=== PATIENT | female | born 1970 | race Caucasian/White ===

== ENCOUNTER → 2016-10-02 | Day surgery (SDC) | payer OTHER ==
[~2016-10-02] MED LIST: AMBIEN10 MG PO; ATIVAN PO; DISCONTINUED MED; LEXAPRO PO; PROZAC10 MG PO; SEASONALE1 BLIST PA PO; SEROQUEL400 MG PO; STAHIST AD TAB1 EACH PO; TOPROL XL PO; TRILEPTAL PO; WELLBUTRIN SR150 MG PO; WELLBUTRIN XL150 M2 PO
--- NOTE | ~2016-10-02 | ECT ---
Unit #: [id number] #: [id number] Patient: SAMEER ESTRADA [id number] [place] [address] [id number] O MR#: [id number] NAME: SAMEER ESTRADA ROOM: Age: 46 Sex: F Admission Date: 10/02/2016 : 1970 Discharge Date: Attending Physician: Regulo Pavon M.D. Primary Care Physician: Jeni Strauss M.D. ECT NOTE DATE OF TREATMENT 10/02/2016 TREATMENT NUMBER 12 maintenance TREATMENT MODALITY Unilateral ECT. ANESTHESIA Glycopyrrolate: 0.2 mg Brevital: 130 mg Succinylcholine: 100 mg TREATMENT PARAMETERS Charge: 444 millicoulombs Pulse Width: 1.0 milliseconds Frequency: 50 Hertz Duration: 5.5 seconds Current: 800 milliamps TREATMENT DELIVERED Energy: 96.3 joules Impedance: 262 ohms Charge: 444 millicoulombs SEIZURE MEASURES OMS: 11 seconds EE seconds COMPLICATIONS None. SUMMARY The patient had a good seizure both with OMS and EEG measures. Depression has not shown any real signs of coming back with her maintenance ECT scheduled every 2 weeks. We are going to try to extend her after the three weeks this time and see how she does. No medication changes at this point. I will continue to follow her in outpatient clinic for medication management. DIFFERENTIAL DIAGNOSIS [place] I: F33.2. [place] II: Deferred. Unit #: [id number] #: [id number] Patient: SAMEER ESTRADA [place] III: Nothing acute. Dictated by... Adrian Christine/jose TD: 10/04/2016 02:31 JOB #: [id number] ECT NOTE X Regulo Pavon MD <ELECTRONICALLY SIGNED> 04/03/17 1702 X ECT
== END | disposition home or self-care (01) ==
LOC: CSUR 06:52
DX: F33.2 Major depressive disorder, recurrent severe without psychotic features (principal); I10 Essential (primary) hypertension; Z79.899 Other long term (current) drug therapy
CPT/HCPCS: 90870; J1885

== ENCOUNTER → 2016-10-23 | Day surgery (SDC) | payer OTHER ==
--- NOTE | ~2016-10-23 | ECT ---
Unit #: [id number] #: [id number] Patient: SAMEER ESTRADA [id number] [place] [address] [id number] O MR#: [id number] NAME: SAMEER ESTARDA ROOM: Age: 46 Sex: F Admission Date: 10/23/2016 : 1970 Discharge Date: Attending Physician: Regulo Pavon M.D. Primary Care Physician: Jeni Strauss M.D. ECT NOTE DATE OF TREATMENT 10/23/2016 TREATMENT NUMBER Thirteen (maintenance) TREATMENT MODALITY Unilateral ECT ANESTHESIA Glycopyrrolate: 0.2 mg Brevital: 130 mg Succinylcholine: 100 mg TREATMENT PARAMETERS Charge: 288 millicoulombs Pulse Width: 1.0 milliseconds Frequency: 40 Hertz Duration: 4.5 seconds Current: 800 milliamps TREATMENT DELIVERED Energy: 65.1 joules Impedance: 269 ohms Charge: 288 millicoulombs SEIZURE MEASURES OMS: 12 seconds EE seconds COMPLICATIONS None. SUMMARY The patient's seizure is measured both by OMS and EEG were a little bit lower than her last ECT, but she seems to be doing pretty well with her maintenance ECTs. We have increased her Lexapro and her mood has done well over the last three weeks. We are going to try to extend her ECTs out to a month. DIFFERENTIAL DIAGNOSES [place] I: F33.2. AXIS II: Deferred. Unit #: [id number] #: [id number] Patient: SAMEER ESTRADA AXIS III: Nothing acute. AXIS IV: AXIS V: Dictated by... Regulo Pavon M.D. DEION/kady TD: 10/24/2016 09:47 JOB #: [id number] ECT NOTE X Regulo Pavon MD <ELECTRONICALLY SIGNED> 04/03/17 1702 X ECT
== END | disposition home or self-care (01) ==
LOC: CSUR 06:49
DX: F33.2 Major depressive disorder, recurrent severe without psychotic features (principal); I10 Essential (primary) hypertension; Z79.899 Other long term (current) drug therapy
CPT/HCPCS: 84703; 90870; J0330; J1885

== ENCOUNTER → 2016-11-20 | Day surgery (SDC) | payer OTHER ==
--- NOTE | ~2016-11-20 | ECT ---
Unit #: [id number] #: [id number] Patient: SAMEER ESTRADA [id number] [place] [address] [id number] O MR#: [id number] NAME: SAMEER ESTRADA ROOM: Age: 46 Sex: F Admission Date: 11/20/2016 : 1970 Discharge Date: Attending Physician: Regulo Pavon M.D. Primary Care Physician: Jeni Strauss M.D. ECT NOTE DATE OF TREATMENT 11/20/2016 TREATMENT NUMBER 14 TREATMENT MODALITY Unilateral ECT. ANESTHESIA Glycopyrrolate: 0.2 mg. Brevital: 130 mg. Succinylcholine: 100 mg. TREATMENT PARAMETERS Charge: 288 millicoulombs Pulse Width: 1.0 milliseconds Frequency: 40 Hertz Duration: 4.5 seconds Current: 800 milliamps TREATMENT DELIVERED Energy: 35.9 joules Impedance: 300 ohms Charge: 288 millicoulombs SEIZURE MEASURES OMS: 13 seconds EE seconds COMPLICATIONS None. SUMMARY The patient had a good seizure with OMS and EEG measures. Her depression seems to have become a little bit on the side of kizzy in the last few days. She has been having difficulty sleeping. Energy has been a little bit hyper and she has been having some racing thoughts and some rapid speech. I will give her another ECT on Sunday unless it feels like this maintenance ECT has been adequate. DIFFERENTIAL DIAGNOSES AX[place] I: F33.2 with rule out for F31.81. Unit #: [id number] #: [id number] Patient: SAEMER ESTRADA AXIS II: Deferred. AXIS III: Nothing acute. Dictated by... Regulo Pavon M.D. SMT/july TD: 11/21/2016 10:02 JOB #: [id number] ECT NOTE Page 1 of 1 X Regulo Pavon MD <ELECTRONICALLY SIGNED> 03/12/17 1207 X ECT
== END | disposition home or self-care (01) ==
LOC: CSUR 07:32
DX: F33.2 Major depressive disorder, recurrent severe without psychotic features (principal); I10 Essential (primary) hypertension; Z79.899 Other long term (current) drug therapy
CPT/HCPCS: 84703; 90870; J0330; J1885

== ENCOUNTER → 2016-11-22 | Day surgery (SDC) | payer OTHER ==
--- NOTE | ~2016-11-22 | ECT ---
Unit #: [id number] #: [id number] Patient: SAMEER ESTRADA [id number] [place] [address] [id number] O MR#: [id number] NAME: SAMEER ESTRADA ROOM: Age: 46 Sex: F Admission Date: 11/22/2016 : 1970 Discharge Date: Attending Physician: Regulo Pavon M.D. Primary Care Physician: Jeni Strauss M.D. ECT NOTE DATE OF TREATMENT 11/22/2016 TREATMENT NUMBER 15, maintenance TREATMENT MODALITIES Unilateral ECT ANESTHESIA Glycopyrrolate: 0.2 mg Brevital: 130 mg Succinylcholine: 100 mg TREATMENT PARAMETERS Charge: 288 millicoulombs Pulse Width: 1.0 milliseconds Frequency: 40 Hertz Duration: 4.5 seconds Current: 800 milliamps TREATMENT DELIVERED Energy: 77.4 joules Impedance: 312 ohms Charge: 288 millicoulombs SEIZURE MEASURES OMS: 11 seconds EE seconds COMPLICATIONS None. SUMMARY The patient had a good seizure with OMS and EEG measures. Depression did get a little bit better between Sunday and today. She feels like her mind is not "racing" as much today. I will put her on the schedule for Sunday but if she feels like that today's ECT has gotten her back into her euthymic state, we will take her off the schedule for Sunday and then put her back on her 3-week maintenance schedule. DISCHARGE DIAGNOSES AXIS I: F33.2 Unit #: [id number] #: [id number] Patient: SAMEER ESTRADA AXIS II: Deferred. AXIS III: Nothing acute. Dictated by... Adrian Christine/luisa TD: 11/23/2016 22:55 JOB #: [id number] ECT NOTE Page 1 of 1 X Regulo Pavon MD <ELECTRONICALLY SIGNED> 03/12/17 1207 X ECT
== END | disposition home or self-care (01) ==
LOC: CSUR 06:58
DX: F33.2 Major depressive disorder, recurrent severe without psychotic features (principal); I10 Essential (primary) hypertension; Z79.899 Other long term (current) drug therapy
CPT/HCPCS: 90870; J0330; J1885

== ENCOUNTER → 2016-11-27 | Day surgery (SDC) | payer OTHER ==
--- NOTE | ~2016-11-27 | ECT ---
Unit #: [id number] #: [id number] Patient: SAMEER ESTRADA [id number] [place] [address] [id number] O MR#: [id number] NAME: SAMEER ESTRADA ROOM: Age: 46 Sex: F Admission Date: 11/27/2016 : 1970 Discharge Date: Attending Physician: Regulo Pavon M.D. Primary Care Physician: Jeni Strauss M.D. ECT NOTE DATE OF TREATMENT 11/27/2016 TREATMENT NUMBER Sixteen (maintenance) TREATMENT MODALITY Unilateral ECT ANESTHESIA Glycopyrrolate: 0.2 mg Brevital: 130 mg Succinylcholine: 100 mg TREATMENT PARAMETERS Charge: 288 millicoulombs Pulse Width: 1.0 milliseconds Frequency: 40 Hertz Duration: 4.5 seconds Current: 800 milliamps TREATMENT DELIVERED Energy: 72.9 joules Impedance: 306 ohms Charge: 288 millicoulombs SEIZURE MEASURES OMS: 12 seconds EE seconds COMPLICATIONS None. SUMMARY The patient had a good seizure with OMS and EEG measures. A little bit on the short side so will increase her energy on Sunday. She does continue to have some depressive symptoms and even though her medications are having some positive benefit, I will get her back here Sunday to continue her maintenance ECTs and we will keep her on a day by day schedule until we get her mood back into the baseline status. DIFFERENTIAL DIAGNOSES [place] I: F33.2. Unit #: [id number] #: [id number] Patient: SAMEER ESTRADA AXIS II: Deferred. AXIS III: Nothing acute. AXIS IV: AXIS V: Dictated by... Regulo Pavon M.D. DEION/kady TD: 11/29/2016 08:23 JOB #: [id number] ECT NOTE Page 1 of 1 X Regulo Pavon MD <ELECTRONICALLY SIGNED> 03/12/17 1207 X ECT
== END | disposition home or self-care (01) ==
LOC: CSUR 07:16
DX: F33.2 Major depressive disorder, recurrent severe without psychotic features (principal); I10 Essential (primary) hypertension; Z79.899 Other long term (current) drug therapy; Z98.890 Other specified postprocedural states
CPT/HCPCS: 90870; J1885

== ENCOUNTER → 2016-11-29 | Day surgery (SDC) | payer OTHER ==
--- NOTE | ~2016-11-29 | ECT ---
Unit #: [id number] #: [id number] Patient: SAMEER ESTRADA [id number] [place] [address] [id number] O MR#: [id number] NAME: SAMEER ESTRADA ROOM: Age: 46 Sex: F Admission Date: 11/29/2016 : 1970 Discharge Date: Attending Physician: Regulo Pavon M.D. Referring Physician: Regulo Pavon M.D. Primary Care Physician: Jeni Strauss M.D. ECT NOTE DATE OF TREATMENT 11/29/2016 TREATMENT NUMBER 17, maintenance TREATMENT MODALITY Unilateral ECT. ANESTHESIA Glycopyrrolate: 0.2 mg. Brevital: 130 mg. Succinylcholine: 100 mg. TREATMENT PARAMETERS Charge: 400 millicoulombs Pulse Width: 1.0 milliseconds Frequency: 50 Hertz Duration: 5 seconds Current: 800 milliamps TREATMENT DELIVERED Energy: 94.8 joules Impedance: 284 ohms Charge: 400 millicoulombs SEIZURE MEASURES OMS: 7 seconds EE seconds COMPLICATIONS None. SUMMARY The patient had a good seizure with OMS and EEG measures. Depression is still pretty intense with psychomotor retardation, poor focus and concentration, loss of interest in activities, poor sleep, feelings of guilt, subjective feeling of depression, and rather flattened affect. I will continue her ECT treatments on Sunday. We will increase the energy of the machine a little bit to see if we can get a better response. DIFFERENTIAL DIAGNOSES AXIS I: F33.2 Unit #: [id number] #: [id number] Patient: SAMEER ESTRADA AXIS II: Deferred. AXIS III: Nothing acute. Dictated by... Regulo Pavon M.D. DEION/mera TD: 11/30/2016 07:16 JOB #: [id number] ECT NOTE Page 1 of 1 X Regulo Pavon MD <ELECTRONICALLY SIGNED> 03/12/17 1207 X ECT
== END | disposition home or self-care (01) ==
LOC: CSUR 07:47
DX: F33.2 Major depressive disorder, recurrent severe without psychotic features (principal)
CPT/HCPCS: 84703; 90870; J0330; J1885

== ENCOUNTER → 2016-12-04 | Day surgery (SDC) | payer OTHER | END | disposition home or self-care (01) | LOC: CSUR 07:45 | DX: F33.2 Major depressive disorder, recurrent severe without psychotic features (principal); I10 Essential (primary) hypertension; Z79.899 Other long term (current) drug therapy; Z98.890 Other specified postprocedural states | CPT/HCPCS: 90870; J0330; J1885 ==

== ENCOUNTER → 2016-12-06 | Day surgery (SDC) | payer OTHER ==
--- NOTE | ~2016-12-06 | ECT ---
Unit #: [id number] #: [id number] Patient: SAMEER ESTRADA [id number] [place] [address] [id number] O MR#: [id number] NAME: SAMEER ESTRADA ROOM: Age: 46 Sex: F Admission Date: 12/06/2016 : 1970 Discharge Date: Attending Physician: Regulo Pavon M.D. Primary Care Physician: Jeni Strauss M.D. ECT NOTE DATE OF TREATMENT 12/06/2016. TREATMENT NUMBER 19, maintenance. MODE Unilateral ECT ANESTHESIA Glycopyrrolate: 0.2 mg Brevital: 130 mg Succinylcholine: 100 mg. TREATMENT PARAMETERS Charge: 400 millicoulombs Pulse width: 1.0 msec Frequency: 50 Hz Duration: 5 seconds Current: 800 milliamps. TREATMENT DELIVERED Energy: 98.7 joules Impedance: 297 ohms Charge: 400 millicoulombs SEIZURE MEASURES OMS: 19 seconds EE seconds COMPLICATIONS None SUMMARY The patient is doing a bit better with her depressive symptoms, but she does continue to have some psychomotor retardation, poor focus and concentration, loss of interest in activities, poor sleep, decreased energy, some loss of appetite. No suicidal or homicidal ideation is noted today. I will continue her ECT treatments on Sunday with the hopes that we might be able to wrap up her ECT schedule at that point and get her back on a maintenance routine scheduled. DIFFERENTIAL DIAGNOSIS AXIS I: F33.2. Unit #: [id number] #: [id number] Patient: SAMEER ESTRADA AXIS II: Deferred. AXIS III: Nothing acute. Dictated by... Adrian Christine/jaden TD: 12/06/2016 10:55 JOB #: [id number] ECT NOTE Page 1 of 1 X Regulo Pavon MD <ELECTRONICALLY SIGNED> 03/12/17 1207 X ECT
--- NOTE | ~2016-12-06 | ECT ---
Unit #: [id number] #: [id number] Patient: SAMEER ESTRADA [id number] [place] [address] [id number] P MR#: [id number] NAME: SAMEER ESTRADA ROOM: Age: 46 Sex: F Admission Date: 12/06/2016 : 1970 Discharge Date: Attending Physician: Regulo Pavon M.D. Primary Care Physician: Jeni Strauss M.D. ECT NOTE DATE OF TREATMENT 12/04/2016 TREATMENT NUMBER 18 TREATMENT MODALITY Unilateral ECT. ANESTHESIA Glycopyrrolate: 0.2 mg. Brevital: 130 mg. Succinylcholine: 100 mg. TREATMENT PARAMETERS Charge: 400 millicoulombs Pulse Width: 1.0 milliseconds Frequency: 50 Hertz Duration: 5 seconds Current: 800 milliamps TREATMENT DELIVERED Energy: 96.3 joules Impedance: 287 ohms Charge: 400 millicoulombs SEIZURE MEASURES OMS: 12 seconds EE seconds COMPLICATIONS None. SUMMARY The patient had a good seizure with her OMS and EEG measures. Depression still seems to be somewhat prevalent. Psychomotor retardation, poor focus and concentration, loss of interest in activities. She does not have any suicidal or homicidal ideation noted, and no kizzy. I will continue her ECT treatments on Sunday. DIFFERENTIAL DIAGNOSES AXIS I: F33.2 AXIS II: Deferred. Unit #: [id number] #: [id number] Patient: SAMEER ESTRADA AXIS III: Nothing acute. Dictated by... Regulo Pavon M.D. DEION/mera TD: 12/05/2016 07:16 JOB #: [id number] ECT NOTE Page 1 of 1 X Regulo Pavon MD <ELECTRONICALLY SIGNED> 03/12/17 1207 X ECT
== END | disposition home or self-care (01) ==
LOC: CSUR 08:06
DX: F33.2 Major depressive disorder, recurrent severe without psychotic features (principal); I10 Essential (primary) hypertension; Z79.899 Other long term (current) drug therapy; Z98.890 Other specified postprocedural states; Z87.09 Personal history of other diseases of the respiratory system
CPT/HCPCS: 84703; 90870; J1885

== ENCOUNTER → 2016-12-08 | Day surgery (SDC) | payer OTHER ==
--- NOTE | ~2016-12-08 | ECT ---
Unit #: [id number] #: [id number] Patient: SAMEER ESTRADA [id number] [place] [address] [id number] O MR#: [id number] NAME: SAMEER ESTRADA ROOM: Age: 46 Sex: F Admission Date: 12/08/2016 : 1970 Discharge Date: Attending Physician: Regulo Pavon M.D. Primary Care Physician: Jeni Strauss M.D. ECT NOTE DATE OF TREATMENT 12/08/2016 TREATMENT NUMBER 20, maintenance TREATMENT MODALITY Unilateral ECT. ANESTHESIA Glycopyrrolate: 0.2 mg. Brevital: 130 mg. Succinylcholine: 100 mg. TREATMENT PARAMETERS Charge: 400 millicoulombs Pulse Width: 1.0 milliseconds Frequency: 50 Hertz Duration: 5 seconds Current: 800 milliamps TREATMENT DELIVERED Energy: 95.2 joules Impedance: 284 ohms Charge: 400 millicoulombs SEIZURE MEASURES OMS: 11 seconds EE seconds COMPLICATIONS None. SUMMARY The patient had a good seizure with OMS and EEG measures. Depression has improved. She does need to have reached her baseline. We will stop her ECT protocol at this point and put her back on her maintenance schedule once every 2 weeks. DIFFERENTIAL DIAGNOSES AXIS I: F33.2 AXIS II: Deferred. Unit #: [id number] #: [id number] Patient: SAMEER ESTRADA AXIS III: Nothing acute. Dictated by... Adrian Christine/mera TD: 12/08/2016 10:51 JOB #: [id number] ECT NOTE Page 1 of 1 X Regulo Pavon MD <ELECTRONICALLY SIGNED> 03/12/17 1207 X ECT
== END | disposition home or self-care (01) ==
LOC: CSUR 07:26
DX: F33.2 Major depressive disorder, recurrent severe without psychotic features (principal); I10 Essential (primary) hypertension; Z79.899 Other long term (current) drug therapy; Z90.89 Acquired absence of other organs; Z98.890 Other specified postprocedural states
CPT/HCPCS: 90870; J0330; J1885

== ENCOUNTER → 2016-12-18 | Day surgery (SDC) | payer OTHER ==
--- NOTE | ~2016-12-18 | ECT ---
Unit #: [id number] #: [id number] Patient: SAMEER ESTRADA [id number] [place] [address] [id number] O MR#: [id number] NAME: SAMEER ESTRADA ROOM: Age: 46 Sex: F Admission Date: 12/18/2016 : 1970 Discharge Date: Attending Physician: Regulo Pavon M.D. Primary Care Physician: Jeni Strauss M.D. ECT NOTE DATE OF TREATMENT 12/18/2016 TREATMENT NUMBER Twenty-one (maintenance) TREATMENT MODALITY Unilateral ECT ANESTHESIA Glycopyrrolate: 0.2 mg Brevital: 130 mg Succinylcholine: 100 mg TREATMENT PARAMETERS Charge: 400 millicoulombs Pulse Width: 1.0 milliseconds Frequency: 50 Hertz Duration: 5 seconds Current: 800 milliamps TREATMENT DELIVERED Energy: 89.7 joules Impedance: 268 ohms Charge: 400 millicoulombs SEIZURE MEASURES OMS: 8 seconds EE seconds COMPLICATIONS None SUMMARY The patient had a good seizure with her EEG measures. Depression seems to be doing pretty well with her maintenance treatments every two weeks. I will bring her back in two weeks for another maintenance treatment and if she continues to do pretty well we will start feathering out her ECTs and she will follow up with me tomorrow in my office for medication management. DIFFERENTIAL DIAGNOSES AXIS I: F33.2. AXIS II: Deferred. Unit #: [id number] #: [id number] Patient: SAMEER ESTRADA AXIS III: Nothing acute. AXIS IV: AXIS V: Dictated by... Regulo Pavon M.D. DEION/kady TD: 12/19/2016 05:53 JOB #: [id number] ECT NOTE Page 1 of 1 X Regulo Pavon MD <ELECTRONICALLY SIGNED> 03/12/17 1207 X ECT
== END | disposition home or self-care (01) ==
LOC: CSUR 07:04
DX: F33.2 Major depressive disorder, recurrent severe without psychotic features (principal); I10 Essential (primary) hypertension; Z79.899 Other long term (current) drug therapy
CPT/HCPCS: 84703; 90870; J0330; J1885

== ENCOUNTER → 2017-01-01 | Day surgery (SDC) | payer OTHER ==
--- NOTE | ~2017-01-01 | ECT ---
Unit #: [id number] #: [id number] Patient: SAMEER ESTRADA [id number] [place] [address] [id number] O MR#: [id number] NAME: SAMEER ESTRADA ROOM: Age: 46 Sex: F Admission Date: 01/01/2017 : 1970 Discharge Date: Attending Physician: Regulo Pavon M.D. Primary Care Physician: Jeni Strauss M.D. ECT NOTE DATE OF TREATMENT 01/01/2017 TREATMENT NUMBER 22 TREATMENT MODALITY Unilateral ECT. ANESTHESIA Glycopyrrolate: 0.2 mg Brevital: 130 mg Succinylcholine: 100 mg TREATMENT PARAMETERS Charge: 400 millicoulombs Pulse Width: 1.0 milliseconds Frequency: 50 Hertz Duration: 6 seconds Current: 800 milliamps TREATMENT DELIVERED Energy: 102.2 joules Impedance: 304 ohms Charge: 400 millicoulombs SEIZURE MEASURES OMS: 8 seconds EE seconds COMPLICATIONS None. SUMMARY The patient had a good seizure with her OMS and EEG measures. Two weeks has been a pretty good interval for her maintenance ECT protocol. We will try to stretch it out to three weeks and see how she does. DIFFERENTIAL DIAGNOSIS [place] I: F33.2. [place] II: Deferred. [place] III: Nothing acute. Unit #: [id number] #: [id number] Patient: SAMEER ESTRADA Dictated by... Adrian Christine/jose TD: 01/02/2017 04:04 JOB #: [id number] ECT NOTE Page 1 of 1 X Regulo Pavon MD <ELECTRONICALLY SIGNED> 03/12/17 1207 X ECT
== END | disposition home or self-care (01) ==
LOC: CSUR 07:43
DX: F33.2 Major depressive disorder, recurrent severe without psychotic features (principal); I10 Essential (primary) hypertension; Z79.899 Other long term (current) drug therapy
CPT/HCPCS: 84703; 90870; J0330; J1885

== ENCOUNTER → 2017-01-24 | Day surgery (SDC) | payer OTHER ==
--- NOTE | ~2017-01-24 | ECT ---
Unit #: [id number] #: [id number] Patient: SAMEER ESTRADA [id number] [place] [address] [id number] O MR#: [id number] NAME: SAMEER ESTRADA ROOM: Age: 46 Sex: F Admission Date: 01/24/2017 : 1970 Discharge Date: Attending Physician: Regulo Pavon M.D. Primary Care Physician: Jeni Strauss M.D. ECT NOTE DATE OF TREATMENT 01/24/2017 TREATMENT NUMBER 23, maintenance. TREATMENT MODALITY Unilateral ECT. ANESTHESIA Glycopyrrolate: 0.2 mg. Brevital: 120 mg. Succinylcholine: 100 mg. TREATMENT PARAMETERS Charge: 400 millicoulombs Pulse Width: 1 millisecond Frequency: 60 Hertz Duration: 5 seconds Current: 800 milliamps TREATMENT DELIVERED Energy: 89.9 joules Impedance: (1) ohms Charge: 400 millicoulombs SEIZURE MEASURES OMS: 11 seconds EE seconds COMPLICATIONS None. SUMMARY The patient had a good seizure with OMS and EEG measures. Depression seems to be doing pretty well keeping her maintenance ECTs every month. We will try going out to four weeks and increase his Lexapro to 20 mg a day. If the combination of increase in Lexapro and maintenance ECT every month does keep her from having any depressive symptoms, we will start (2) her ECTs out at that point. DIFFERENTIAL DIAGNOSES AXIS I: F33.2. Unit #: [id number] #: [id number] Patient: SAMEER ESTRADA AXIS II: Deferred. AXIS III: Nothing acute. Dictated by... Regulo Pavon M.D. DEION/jaden TD: 01/25/2017 06:58 JOB #: [id number] ECT NOTE Page 1 of 1 X Regulo Pavon MD <ELECTRONICALLY SIGNED> 03/12/17 1207 X ECT
== END | disposition home or self-care (01) ==
LOC: CSUR 07:52
DX: F33.2 Major depressive disorder, recurrent severe without psychotic features (principal); I10 Essential (primary) hypertension; Z79.899 Other long term (current) drug therapy; Z98.890 Other specified postprocedural states
CPT/HCPCS: 84703; 90870; J0330; J1885

== ENCOUNTER → 2017-02-26 | Day surgery (SDC) | payer OTHER ==
--- NOTE | ~2017-02-26 | ECT ---
Unit #: [id number] #: [id number] Patient: SAMEER ESTRADA [id number] [place] [address] [id number] O MR#: [id number] NAME: SAMEER ESTRADA ROOM: Age: 46 Sex: F Admission Date: 02/26/2017 : 1970 Discharge Date: Attending Physician: Regulo Pavon M.D. Primary Care Physician: Jeni Strauss M.D. ECT NOTE DATE OF TREATMENT 02/26/2017 TREATMENT NUMBER 24 maintenance TREATMENT MODALITY Unilateral ECT. ANESTHESIA Glycopyrrolate: 0.2 mg Brevital: 120 mg Succinylcholine: 100 mg TREATMENT PARAMETERS Charge: 400 millicoulombs Pulse Width: 1.0 milliseconds Frequency: 50 Hertz Duration: 5 seconds Current: 800 milliamps TREATMENT DELIVERED Energy: 95.6 joules Impedance: 283 ohms Charge: 400 millicoulombs SEIZURE MEASURES OMS: 11 seconds EE seconds COMPLICATIONS None. SUMMARY The patient had a good seizure both with her OMS and EEG measures. She had done well with her maintenance ECTs being about every six weeks. At this point I won't schedule her for her next ECT as our clinic will be closed but I will begin the process of finding her (1)____ replacement for her maintenance ECT treatments and she will continue to follow me as an outpatient. DIFFERENTIAL DIAGNOSIS [place] I: F33.2. Unit #: [id number] #: [id number] Patient: SAMEER ESTRADA [place] II: Deferred. [place] III: Nothing acute. Dictated by... Regulo Pavon M.D. DEION/jose TD: 02/27/2017 05:00 JOB #: [id number] ECT NOTE Page 1 of 1 X Regulo Pavon MD <ELECTRONICALLY SIGNED> 03/12/17 1207 X ECT
== END | disposition home or self-care (01) ==
LOC: CSUR 02-21 08:00
DX: F33.2 Major depressive disorder, recurrent severe without psychotic features (principal); I10 Essential (primary) hypertension; Z79.899 Other long term (current) drug therapy
CPT/HCPCS: 90870; J0330; J1885